=== PATIENT | female | born 1960 | race Caucasian/White ===

== ENCOUNTER 2019-02-26 13:35 | Observation (INO) | payer OTHER ==
[2019-02-26] MEDS ORDERED: NA CHLORIDE 0.9% 1,000 ML ONE (14:09)
[2019-02-26] MEDS ORDERED: ASPIRIN 81 MG CHEWABLE TABLET ONE (14:09)
[2019-02-26] MEDS ORDERED: FAMOTIDINE 20 MG/2 ML VIAL IV ONE (14:09)
[2019-02-26 14:22] LABS: Absolute Lymphocytes (CBC) 1.2 K/uL (0.7-4.9); Basophils % 0.7 % (0-1.3); Hematocrit 42.3 % (36.0-45.0); Lymphocytes % 26.9 % (15.3-44.8); MPV 8.7 fL (7.6-11.3); RBC Red Blood Cell Count 4.31 M/uL (3.86-4.86)
--- NOTE | 2019-02-26 14:23 | RAD REPORT ---
EXAM DESCRIPTION: RAD - Chest Single View - 02/26/2019 2:15 pm CLINICAL HISTORY: CHEST PAIN Chest pain. COMPARISON: CHEST SINGLE VIEW dated 03/04/2011; CHEST PA AND LAT 2 VIEW dated 03/20/2003 FINDINGS: Portable technique limits examination quality. The lungs are grossly clear. The heart is normal in size. No displaced fractures. IMPRESSION: No acute intrathoracic process suspected.
[2019-02-26 14:24] LABS: Protime INR 0.94
[2019-02-26 14:42] LABS: ALT/SGPT 23 U/L (12-78); AST/SGOT 17 U/L (15-37); Alkaline Phosphatase 62 U/L (45-117); BUN Blood Urea Nitrogen 11 mg/dL (7-18); Bicarbonate 31 mmol/L (21-32); Bilirubin Direct 0.1 mg/dL (0-0.2); Bilirubin Total 0.5 mg/dL (0.2-1.0); Glucose Level 79 mg/dL (74-106); Lipase 85 U/L (73-393); Magnesium 2.1 mg/dL (1.8-2.4); NT PRO-BNP 25 pg/mL (<125); Protein, Total 7.3 g/dL (6.4-8.2); Sodium Level 140 mmol/L (136-145); Troponin (Emerg Dept Use Only) < 0.02 ng/mL (0.0-0.045)
--- NOTE | 2019-02-26 15:41 | EKG ---
Test Date: 2019-02-26 Test Time: 13:43:58 Service Specialist: KELLE MEASUREMENT RESULTS: Intervals: Rate: 85 ID: [id number] QRSD: 86 QT: 366 QTc: 435 [place]: P: 69 ID: [id number] QRS: 109 T: 57 INTERPRETIVE STATEMENTS: Sinus rhythm with premature atrial complexes Rightward axis Borderline ECG Compared to ECG 03/05/2011 03:09:14 Atrial premature complex(es) now present Electronically Signed On 02-26-19 15:40:50 CDT by Bautista Noriega
--- NOTE | 2019-02-26 16:31 | EDPHYS ---
Physician Documentation [facility] Name: Meena Bryant Age: 58 yrs Sex: Female : 1960 Arrival Date: 02/26/2019 Time: 13:38 Bed 16 Private MD: Jt Avila B ED Physician [place] HPI: 02/26 16:25 This 58 yrs old Female presents to ER via Ambulatory with complaints of Chest zac Pain. 16:25 The patient or guardian reports chest pain that is located primarily in the substernal zac area, anterior chest wall, bilaterally. Onset: 3 day(s) ago. The pain radiates to back. Associated signs and symptoms: The patient has no apparent associated signs or symptoms. The chest pain is described as burning. Modifying factors: The symptoms are alleviated by nothing. Severity of pain: At its worst the pain was mild. Historical: - Allergies: 13:47 Tetanus Vaccines \T\ Toxoid; tw2 - Home Meds: 13:47 Fetzima oral oral [Active]; quintapin [Active]; estrodol and progesterone [Active]; tw2 Vitamin C 1,000 mg Oral tab [Active]; Vitamin B-12 50 mcg Oral tab [Active]; Vitamin D3 1,000 unit oral chew [Active]; - PMHx: 13:47 Depression; tw2 - PSHx: 13:47 Cholecystectomy; uterine ablation; tw2 - Immunization history:: Adult Immunizations. - Social history:: Smoking status: Smoking status: Patient uses tobacco products, 8 cigarettes a day, but i quit 10 days ago. - Ebola Screening: : Patient denies travel to an Ebola-affected area in the 21 days before illness onset. - Family history:: not pertinent. ROS: 16:25 Constitutional: Negative for fever, chills, and weight loss, Eyes: Negative for injury, zac pain, redness, and discharge, ENT: Negative for injury, pain, and discharge, Neck: Negative for injury, pain, and swelling, Respiratory: Negative for shortness of breath, cough, wheezing, and pleuritic chest pain, Back: Negative for injury and pain, : Negative for injury, bleeding, discharge, and swelling, MS/Extremity: Negative for injury and deformity, Skin: Negative for injury, rash, and discoloration, Neuro: Negative for headache, weakness, numbness, tingling, and seizure, Psych: Negative for depression, anxiety, suicide ideation, homicidal ideation, and hallucinations, Allergy/Immunology: Negative for hives, rash, and allergies, Endocrine: Negative for neck swelling, polydipsia, polyuria, polyphagia, and marked weight changes, Hematologic/Lymphatic: Negative for swollen nodes, abnormal bleeding, and unusual bruising. 16:25 Cardiovascular: Positive for chest pain. 16:25 Abdomen/GI: Positive for abdominal pain, of the epigastric area. Exam: 16:25 Constitutional: This is a well developed, well nourished patient who is awake, alert, zac and in no acute distress. Head/Face: Normocephalic, atraumatic. Eyes: Pupils equal round and reactive to light, extra-ocular motions intact. Lids and lashes normal. Conjunctiva and sclera are non-icteric and not injected. Cornea within normal limits. Periorbital areas with no swelling, redness, or edema. ENT: Nares patent. No nasal discharge, no septal abnormalities noted. Tympanic membranes are normal and external auditory canals are clear. Oropharynx with no redness, swelling, or masses, exudates, or evidence of obstruction, uvula midline. Mucous membranes moist. Neck: Trachea midline, no thyromegaly or masses palpated, and no cervical lymphadenopathy. Supple, full range of motion without nuchal rigidity, or vertebral point tenderness. No Meningismus. Chest/axilla: Normal chest wall appearance and motion. Nontender with no deformity. No lesions are appreciated. Respiratory: Lungs have equal breath sounds bilaterally, clear to auscultation and percussion. No rales, rhonchi or wheezes noted. No increased work of breathing, no retractions or nasal flaring. Back: No spinal tenderness. No costovertebral tenderness. Full range of motion. Skin: Warm, dry with normal turgor. Normal color with no rashes, no lesions, and no evidence of cellulitis. MS/ Extremity: Pulses equal, no cyanosis. Neurovascular intact. Full, normal range of motion. Neuro: Awake and alert, GCS 15, oriented to person, place, time, and situation. Cranial nerves II-XII grossly intact. Motor strength 5/5 in all extremities. Sensory grossly intact. Cerebellar exam normal. Normal gait. Psych: Awake, alert, with orientation to person, place and time. Behavior, mood, and affect are within normal limits. 16:25 Cardiovascular: Rate: normal, Rhythm: regular, Pulses: no pulse deficits are appreciated, Heart sounds: normal, normal S1and S2, no S3 or S4, no murmur, no rub, no gallop, Edema: is not appreciated, JVD: is not appreciated. Vital Signs: 13:43 BP 162 / 102; Pulse 84; Resp 17; Temp 97.9(TE); Pulse Ox 99% on R/A; Weight 66.68 kg tw2 (R); Height 5 ft. 7 in. (170.18 cm); Pain 7/10; 15:16 BP 125 / 78; Pulse 81; Resp 16; Pulse Ox 99% on R/A; ph 16:22 BP 140 / 79; Pulse 83; Resp 18; Pulse Ox 99% on R/A; ph 17:36 BP 127 / 81; Pulse 81; Resp 18; Temp 97.8; Pulse Ox 99% on R/A; ph 18:15 BP 124 / 78; Pulse 76; Resp 18; Temp 97.5; Pulse Ox 100% on R/A; ph 13:43 Body Mass Index 23.02 (66.68 kg, 170.18 cm) tw2 MDM: 14:14 Patient medically screened. [facility] 16:29 Data reviewed: vital signs, nurses notes, lab test result(s), EKG, radiologic studies, [facility] CT scan, plain films. 02/26 13:51 Order name: Basic Metabolic Panel; Complete Time: 16:22 [facility] 02/26 13:51 Order name: CBC with Diff; Complete Time: 16:22 [facility] 02/26 13:51 Order name: LFT's; Complete Time: 16:22 [facility] 02/26 13:51 Order name: Magnesium; Complete Time: 16:22 [facility] 02/26 13:51 Order name: NT PRO-BNP; Complete Time: 16:22 [facility] 02/26 13:51 Order name: PT-INR; Complete Time: 16:22 [facility] 02/26 13:51 Order name: Troponin (emerg Dept Use Only); Complete Time: 16:22 [facility] 02/26 13:51 Order name: XRAY Chest (1 view); Complete Time: 16:22 [facility] 02/26 13:51 Order name: Lipase; Complete Time: 16:22 [facility] 02/26 16:24 Order name: CT Aorta for Dissection; Complete Time: 17:03 [facility] 02/26 13:51 Order name: EKG; Complete Time: 13:52 [facility] 02/26 13:51 Order name: Cardiac monitoring; Complete Time: 14:21 [facility] 02/26 13:51 Order name: EKG - Nurse/Tech; Complete Time: 14:21 [facility] 02/26 13:51 Order name: IV Saline Lock; Complete Time: 14:21 [facility] 02/26 13:51 Order name: Labs collected and sent; Complete Time: 14:21 [facility] 02/26 13:51 Order name: O2 Per Protocol; Complete Time: 14:21 [facility] 02/26 13:51 Order name: O2 Sat Monitoring; Complete Time: 14:21 [facility] Administered Medications: 14:10 Drug: Aspirin 162 mg Route: PO; ca1 15:00 Follow up: Response: No adverse reaction ph 14:10 Drug: NS 0.9% 1000 ml Route: IV; Rate: 125 ml/hr; Site: left antecubital; ca1 18:00 Follow up: Response: No adverse reaction; IV Status: Infusion continued upon admission ph 14:15 Drug: Pepcid 20 mg Route: IVP; Site: left antecubital; ca1 15:00 Follow up: Response: No adverse reaction ph 17:10 Drug: Lopressor 25 mg Route: PO; ph 18:00 Follow up: Response: No adverse reaction ph 17:15 Drug: GI Cocktail without - (Maalox Suspension 30 ml, Lidocaine Liquid 2 % 15 ph ml) Route: PO; 17:45 Follow up: Response: No adverse reaction; Pain is decreased ph 17:15 Drug: Lovenox 1 mg/kg Route: Sub-Q; Site: right lower abdomen; ph 18:00 Follow up: Response: No adverse reaction ph 17:18 Drug: Zofran 4 mg Route: IVP; Site: left antecubital; ph 18:00 Follow up: Response: No adverse reaction ph 17:20 Drug: morphine 2 mg Route: IVP; Site: left antecubital; ph 18:00 Follow up: Response: No adverse reaction; Pain is decreased; RASS: Alert and Calm (0) ph Disposition: 02/26/19 16:30 Hospitalization ordered by Prezas, Talat for Observation. Preliminary diagnosis are Chest pain, unspecified, Functional dyspepsia. - Bed requested for Telemetry/MedSurg (observation). - Status is Observation. ph - Condition is Stable. - Problem is new. - Symptoms have improved. UTI on Admission? No Signatures: Dispatcher [employer] EDMS Jaqueline Romero Glen Mcrae MD MD cha Hall, Patricia, RN RN ph Litzy Coughlin, RN RN tw2 Za De Luna RN RN ca1 Corrections: (The following items were deleted from the chart) 17:35 16:30 Hospitalization Ordered by Talat Ng DO for Observation. Preliminary bd diagnosis is Chest pain, unspecified; Functional dyspepsia. Bed requested for Telemetry/MedSurg (observation). Status is Observation. Condition is Stable. Problem is new. Symptoms have improved. UTI on Admission? No. [facility] 18:30 17:35 02/26/2019 16:30 Hospitalization Ordered by Talat Ng DO for Observation. ph Preliminary diagnosis is Chest pain, unspecified; Functional dyspepsia. Bed requested for Telemetry/MedSurg (observation). Status is Observation. Condition is Stable. Problem is new. Symptoms have improved. UTI on Admission? No. bd
--- NOTE | 2019-02-26 16:31 | ER ---
Nurse's Notes [facility] Name: Meena Bryant Age: 58 yrs Sex: Female : 1960 Arrival Date: 02/26/2019 Time: 13:38 Bed 16 Private MD: Jt Avila B Diagnosis: Chest pain, unspecified;Functional dyspepsia Presentation: 02/26 13:41 Presenting complaint: Patient states: Tuesday morning i started with like a stomach tw2 virus and also an achy feeling in my chest, it radiates up, i have had pancreatitis before maybe my esophagus was inflamed, when i get indigestion i get pain in my back but the medicine is not helping, chest pain is keeping me awake. Transition of care: patient was not received from another setting of care. Onset of symptoms was February 26, 2019. Risk Assessment: Do you want to hurt yourself or someone else? Patient reports no desire to harm self or others. Initial Sepsis Screen: Does the patient meet any 2 criteria? No. Patient's initial sepsis screen is negative. Does the patient have a suspected source of infection? No. Patient's initial sepsis screen is negative. Care prior to arrival: None. 13:41 Method Of Arrival: Ambulatory tw2 13:41 Acuity: CHARLIE 3 tw2 Triage Assessment: 13:44 General: Appears in no apparent distress. slender, well groomed, Behavior is calm, tw2 cooperative, appropriate for age. Pain: Complains of pain in chest. Cardiovascular: Reports chest pain. Historical: - Allergies: 13:47 Tetanus Vaccines \T\ Toxoid; tw2 - Home Meds: 13:47 Fetzima oral oral [Active]; quintapin [Active]; estrodol and progesterone [Active]; tw2 Vitamin C 1,000 mg Oral tab [Active]; Vitamin B-12 50 mcg Oral tab [Active]; Vitamin D3 1,000 unit oral chew [Active]; - PMHx: 13:47 Depression; tw2 - PSHx: 13:47 Cholecystectomy; uterine ablation; tw2 - Immunization history:: Adult Immunizations. - Social history:: Smoking status: Smoking status: Patient uses tobacco products, 8 cigarettes a day, but i quit 10 days ago. - Ebola Screening: : Patient denies travel to an Ebola-affected area in the 21 days before illness onset. - Family history:: not pertinent. Screenin:26 Abuse screen: Denies threats or abuse. Nutritional screening: No deficits noted. tw2 Tuberculosis screening: No symptoms or risk factors identified. Fall Risk None identified. Assessment: 13:41 Pain: Pain radiates to back Pain began 2-3 days ago. tw2 14:00 General: Appears in no apparent distress. comfortable, well groomed, Behavior is calm, ph cooperative, appropriate for age, Denies fever. Pain: Complains of pain in epigastric area Pain radiates to back and chest. Neuro: Level of Consciousness is awake, alert, obeys commands, Oriented to person, place, time, situation. Cardiovascular: Reports chest pain, nausea, vomiting, Denies palpitations, shortness of breath, Rhythm is regular Chest pain is located in substernal area radiates back. Respiratory: Airway is patent Respiratory effort is even, unlabored. GI: Reports epigastric pain, nausea, vomiting. Derm: Skin is intact, Skin is pink, warm \T\ dry. 15:00 Reassessment: Patient appears in no apparent distress at this time. Patient and/or ph family updated on plan of care and expected duration. Pain level reassessed. Patient is alert, oriented x 3, equal unlabored respirations, skin warm/dry/pink. 16:21 Reassessment: Patient appears in no apparent distress at this time. Patient and/or ph family updated on plan of care and expected duration. Pain level reassessed. Patient is alert, oriented x 3, equal unlabored respirations, skin warm/dry/pink. 17:30 Reassessment: Patient appears in no apparent distress at this time. Patient and/or ph family updated on plan of care and expected duration. Pain level reassessed. Patient is alert, oriented x 3, equal unlabored respirations, skin warm/dry/pink. 18:15 Reassessment: Patient appears in no apparent distress at this time. Patient and/or ph family updated on plan of care and expected duration. Pain level reassessed. Patient is alert, oriented x 3, equal unlabored respirations, skin warm/dry/pink. Report called to Daniel CONDON. Vital Signs: 13:43 BP 162 / 102; Pulse 84; Resp 17; Temp 97.9(TE); Pulse Ox 99% on R/A; Weight 66.68 kg tw2 (R); Height 5 ft. 7 in. (170.18 cm); Pain 7/10; 15:16 BP 125 / 78; Pulse 81; Resp 16; Pulse Ox 99% on R/A; ph 16:22 BP 140 / 79; Pulse 83; Resp 18; Pulse Ox 99% on R/A; ph 17:36 BP 127 / 81; Pulse 81; Resp 18; Temp 97.8; Pulse Ox 99% on R/A; ph 18:15 BP 124 / 78; Pulse 76; Resp 18; Temp 97.5; Pulse Ox 100% on R/A; ph 13:43 Body Mass Index 23.02 (66.68 kg, 170.18 cm) tw2 ED Course: 13:38 Patient arrived in ED. mr 13:39 Jt Aivla MD is Private Physician. mr 13:43 Triage completed. tw2 13:43 Arm band placed on. EKG completed in triage. Results shown to MD. tw2 13:47 Placed in gown. Bed in low position. Call light in reach. Adult w/ patient. Cardiac tw2 monitor on. Pulse ox on. NIBP on. 13:50 [place] Verde MD is Attending Physician. zac 13:55 Arti Martins, TAURUS is Primary Nurse. ph 14:03 EKG done, by roving technician. reviewed by Anthony Cullen MD. sm3 14:15 XRAY Chest (1 view) In Process Unspecified. EDMS 14:26 Patient maintains SpO2 saturation greater than 95% on room air. tw2 15:30 Inserted saline lock: 20 gauge in left antecubital area, using aseptic technique. ph 16:29 Talat Ng DO is Hospitalizing Provider. zac 16:[address] nj 16:37 CT completed. Patient tolerated procedure well. Patient moved back from CT. nj 16:38 CT Aorta for Dissection In Process Unspecified. EDMS 18:20 No provider procedures requiring assistance completed. Patient admitted, IV remains in ph place. Administered Medications: 14:10 Drug: Aspirin 162 mg Route: PO; ca1 15:00 Follow up: Response: No adverse reaction ph 14:10 Drug: NS 0.9% 1000 ml Route: IV; Rate: 125 ml/hr; Site: left antecubital; ca1 18:00 Follow up: Response: No adverse reaction; IV Status: Infusion continued upon admission ph 14:15 Drug: Pepcid 20 mg Route: IVP; Site: left antecubital; ca1 15:00 Follow up: Response: No adverse reaction ph 17:10 Drug: Lopressor 25 mg Route: PO; ph 18:00 Follow up: Response: No adverse reaction ph 17:15 Drug: GI Cocktail without - (Maalox Suspension 30 ml, Lidocaine Liquid 2 % 15 ph ml) Route: PO; 17:45 Follow up: Response: No adverse reaction; Pain is decreased ph 17:15 Drug: Lovenox 1 mg/kg Route: Sub-Q; Site: right lower abdomen; ph 18:00 Follow up: Response: No adverse reaction ph 17:18 Drug: Zofran 4 mg Route: IVP; Site: left antecubital; ph 18:00 Follow up: Response: No adverse reaction ph 17:20 Drug: morphine 2 mg Route: IVP; Site: left antecubital; ph 18:00 Follow up: Response: No adverse reaction; Pain is decreased; RASS: Alert and Calm (0) ph Outcome: 16:30 Decision to Hospitalize by Provider. zac 18:30 Patient left the ED. ph 18:30 Admitted to Tele accompanied by tech, via wheelchair, with chart. ph 18:30 Condition: stable 18:30 Instructed on the need for admit. Signatures: Dispatcher [employer] Glen Mcmanus MD MD cha Rivera, Jennifer mr Martins, TAURUS Chi RN Litzy Coughlin RN RN 2 Esequiel Smith Shakira [facility] Za De Luna RN RN ca1
[2019-02-26] MEDS ORDERED: MORPHINE 2 MG/ML SYR ONE (16:53)
[2019-02-26] MEDS ORDERED: METOPROLOL TAR 25 MG TAB ONE (16:53)
[2019-02-26] MEDS ORDERED: MAGNE/ALUM HYDROXD 30 ML UCUP ONE (16:53)
[2019-02-26] MEDS ORDERED: ONDANSETRON 4 MG/2 ML VIAL ONE (16:53)
[2019-02-26] MEDS ORDERED: LIDOCAINE VISCOUS 2% SOLN 15 ML UDC ONE (16:54)
[2019-02-26] MEDS ORDERED: ENOXAPARIN 60 MG/0.6 ML SQ ONE (16:54)
--- NOTE | 2019-02-26 16:58 | RAD REPORT ---
EXAM DESCRIPTION: CT - Angio Aorta For Dissection - 02/26/2019 4:38 pm CLINICAL HISTORY: . Chest and abd pain COMPARISON: None TECHNIQUE: Computed tomography angiography of the chest, abdomen pelvis were obtained. 100 cc Isovue 370 was administered intravenously. Coronal and sagittal reconstruction were performed. MIP 3D reconstruction was performed All CT scans are performed using dose optimization technique as appropriate and may include automated exposure control or mA/KV adjustment according to patient size. FINDINGS: An aortic dissection is not seen. An aortic aneurysm is not displayed. The celiac, SMA and KINJAL are patent . A lung consolidation is not present. A pericardial effusion is not seen. A pleural effusion is not n oted. The liver,spleen, pancreas adrenals kidneys demonstrate no significant abnormality. The appendix is normal. There no evidence diverticulitis. IMPRESSION: Negative for an aortic dissection.
--- NOTE | 2019-02-26 17:15 | P.HP ---
Certification for Inpatient Patient admitted to: Observation With expected LOS: <2 Midnights Patient will require the following post-hospital care: None Practitioner: I am a practitioner with admitting privileges, knowledge of patient current condition, hospital course, and medical plan of care. Services: Services provided to patient in accordance with Admission requirements found in Title 42 Section 412.3 of the Code of Federal Regulations Patient History Date of Service: 02/26/19 Primary Care Provider: Dr. Jt Avila Reason for admission: Chest pain History of Present Illness: 58-year-old female with history of GERD, migraine headaches, depression and former tobacco use. Patient reported chest pain. Patient reports she woke up Tuesday with pain to the epigastric region. It was associated with some nausea and vomiting. Her condition did not improve. It was more of a dull like sensation. She took some Prilosec on Tuesday including the weekend without any relief. Today she had more pain but to the sternal region. It would radiate to the back. She did not have any nausea or vomiting. Nor shortness of breath. Because the pain persisted she came to the ER for further evaluation. In the ER she was evaluated. Blood pressure was slightly it elevated upon arrival. CBC, BMP unremarkable. Troponin unremarkable. EKG did not show any significant ST changes. CT dissection of the chest unremarkable. Patient was admitted for further evaluation. When I saw the patient in the ER, pain had improved. Patient is a former smoker. She recently quit. There is a family history of heart disease. Home medications list reviewed: Yes - Past Medical/Surgical History Diabetic: No -: Depression -: GERD -: Migraines -: Former tobacco use -: History of pancreatitis -: Cholecystectomy -: Uterine ablation Psychosocial/ Personal History: Patient is - Family History Father -: Heart disease Mother -: Hypertension Brother -: Liver disease (Cirrhosis) - Social History Smoking Status: Former smoker Alcohol use: Yes CD- Drugs: No Caffeine use: Yes Place of Residence: Home Review of Systems General: Unremarkable Eyes: Unremarkable ENT: Unremarkable Respiratory: Unremarkable Cardiovascular: Chest Pain, As per HPI Gastrointestinal: Nausea, Vomiting, As per HPI Genitourinary: Unremarkable Musculoskeletal: Unremarkable Integumentary: Unremarkable Neurological: Unremarkable Lymphatics: Unremarkable Physical Examination - Physical Exam General: Alert, In no apparent distress, Oriented x3, Cooperative HEENT: Atraumatic, Normocephalic, PERRLA, Mucous membr. moist/pink Neck: Supple Respiratory: Clear to auscultation bilaterally, Normal air movement Cardiovascular: Normal pulses, Regular rate/rhythm Gastrointestinal: Normal bowel sounds, Soft and benign, Non-distended, No tenderness, No masses, No rebound, No guarding Musculoskeletal: No tenderness, No warmth Integumentary: No tenderness/swelling, No erythema, No warmth, No cyanosis Neurological: Normal speech, Normal strength at 5/5 x4 extr, Normal tone, Normal affect - Studies Laboratory Data (last 24 hrs) 02/26/19 14:05: PT 11.1, INR 0.94 02/26/19 14:05: WBC 4.6, Hgb 14.5, Hct 42.3, Plt Count 186 02/26/19 14:05: Sodium 140, Potassium 4.0, BUN 11, Creatinine 0.70, Glucose 79, Magnesium 2.1, Total Bilirubin 0.5, AST 17, ALT 23, Alkaline Phosphatase 62, Lipase 85 Assessment and Plan - Plan Impression: Chest pain likely noncardiac GERD Depression Migraine headaches Former tobacco use Plan: Chest pain likely noncardiac: Patient will be admitted for further evaluation. Will monitor cardiac enzymes and telemetry. Will obtain fasting lipid panel in the morning. Cardiology will be consulted to further evaluate. Will keep the patient NPO after midnight in preparation for possible cardiac evaluation in the morning by Cardiology. Will start aspirin, Lipitor, Protonix. Will provide IV metoprolol if blood pressure remains elevated. I will turn the service over to Dr. Kearns tomorrow. I will go over the plan of care with her. Anticipate discharge tomorrow with clinical improvement and cardiac evaluation. GERD: Suspect GERD. Will start Protonix. If cardiac workup unremarkable will recommended GI evaluation as an outpatient. Depression: Patient may continue with her home medication which includes: Fetzima and Seroquel. Migraine headaches: Patient may require medication as needed. Patient may use her home medication. Former tobacco use: Patient recently quit tobacco. She plans to remain committed to no longer smoke. Discharge Plan: Home Plan to discharge in: 24 Hours - Advance Directives Does patient have a Living Will: No Does patient have a Durable POA for Healthcare: No - Code Status/Comfort Care Code Status Assessed: Yes (Patient is full code) Time Spent Managing Pts Care (In Minutes): 55
[2019-02-26 18:44] VITALS: BMI 23.0
[2019-02-26] MEDS ORDERED: METOPROLOL TARTRATE 5 MG/5 ML INJ IV PRN (18:46)
[2019-02-26] MEDS ORDERED: ONDANSETRON 4 MG/2 ML VIAL IV PRN (18:46)
[2019-02-26] MEDS ORDERED: ACETAMINOPHEN 500 MG TAB PO PRN (18:46)
[2019-02-26] MEDS ORDERED: QUETIAPINE 25 MG TAB PO SCH (21:00)
[2019-02-26] MEDS ORDERED: ATORVASTATIN 40 MG TAB PO SCH (21:00)
[2019-02-26 21:09] LABS: CKMB Creatine Kinase MB < 1.0 ng/mL (0.3-3.6); Creatine Phosphokinase 28 U/L (26-192); Troponin I < 0.02 ng/mL (0.0-0.045)
[2019-02-26] MEDS ORDERED: ESTRADIOL 0.1 MG TOP SCH (21:45)
[2019-02-27 00:31] LABS: Urine Appearance CLEAR; Urine Bilirubin NEGATIVE (NEG); Urine Blood NEGATIVE (NEG); Urine Color YELLOW; Urine Glucose NEGATIVE (NEG); Urine Microscopic Reflex NO UMIC; Urine Protein NEGATIVE (NEG); Urine Specific Gravity >=1.030 (1.005-1.030)
[2019-02-27] MEDS: NITROGLYCERIN 0.4 MG/TAB SL PRN ×3 (00:40→00:55)
[2019-02-27] MEDS ORDERED: MORPHINE 2 MG/ML SYR IV ONE (01:10)
[2019-02-27 04:20] VITALS: O2SAT 96
[2019-02-27 05:23] LABS: CKMB Creatine Kinase MB < 1.0 ng/mL (0.3-3.6); Creatine Phosphokinase 24 U/L (26-192); HDL Cholesterol 59 mg/dL (40-60); LDL Cholesterol, Calculated 131 (<130); Troponin I < 0.02 ng/mL (0.0-0.045)
[2019-02-27] MEDS ORDERED: PANTOPRAZOLE 40MG TABLET PO SCH (06:30)
[2019-02-27] MEDS ORDERED: ENOXAPARIN 40 MG/0.4 ML SQ SCH (09:00)
[2019-02-27] MEDS ORDERED: VITAMIN D 1000 UNIT TAB PO SCH (09:00)
[2019-02-27] MEDS ORDERED: ASPIRIN EC 81 MG TAB PO SCH (09:00)
--- NOTE | 2019-02-27 10:17 | EKG ---
Test Date: 2019-02-27 Test Time: 01:25:15 Brand Attendant: OSCAR MEASUREMENT RESULTS: Intervals: Rate: 68 VA: 152 QRSD: 88 QT: 410 QTc: 435 [place]: P: 60 VA: 152 QRS: 100 T: 50 INTERPRETIVE STATEMENTS: Normal sinus rhythm Rightward axis Borderline ECG Compared to ECG 02/26/2019 13:43:58 Atrial premature complex(es) no longer present Electronically Signed On 02-27-19 10:15:57 CDT by Tk Fischer
--- NOTE | 2019-02-27 10:29 | ECHO ---
HEIGHT: 5 ft 7 in WEIGHT: 147 lb 0 oz DATE OF STUDY: 05/30/[address]: Talat Ng DO 2-DIMENSIONAL: YES M.MODE: YES DOPPLER: YES COLOR FLOW: YES TDS: NO PORTABLE: YES DEFINITY: NO BUBBLE STUDY: NO DIAGNOSIS: CHEST PAIN CARDIAC HISTORY: CATHERIZATION: NO SURGERY: NO PROSTHETIC VALVE: NO PACEMAKER: NO MEASUREMENTS (cm) DIASTOLIC (NORMALS) SYSTOLIC (NORMALS) IVSd 1.0 (0.6-1.2) LA Diam 2.9 (1.9-4.0) LVEF 67% LVIDd 4.6 (3.5-5.7) LVIDs 2.9 (2.0-3.5) %FS 37% LVPWd 1.2 (0.6-1.2) Ao Diam 2.8 (2.0-3.7) 2 DIMENSIONAL ASSESSMENT: RIGHT ATRIUM: NORMAL LEFT ATRIUM: NORMAL RIGHT VENTRICLE: NORMAL LEFT VENTRICLE: NORMAL TRICUSPID VALVE: NORMAL MITRAL VALVE: MITRAL ANNULAR CALCIFICATION PULMONIC VALVE: NORMAL AORTIC VALVE: NORMAL PERICARDIAL EFFUSION: NONE AORTIC ROOT: NORMAL LEFT VENTRICULAR WALL MOTION: NORMAL. DOPPLER/COLOR FLOW: TRACE TRICUSPID REGURGITATION. MILD AORTIC REGURGITATION. COMMENTS: NORMAL LEFT VENTRICULAR SIZE AND FUNCTION. MITRAL ANNULAR CALCIFICATION. MILD AORTIC REGURGITATION. TRACE OF TRICUSPID REGURGITATION NORMAL RIGHT VENTRICULAR SYSTOLIC PRESSURE. NO WALL MOTION ABNORMALITY. NO EFFUSION. TECHNOLOGIST: NANCI SPANN
[2019-02-27 13:39] VITALS: BP 131/75; TEMP 98.3
--- NOTE | 2019-02-27 16:04 | P.SSS ---
Patient History Date of Service: 02/27/19 Primary Care Provider: Dr. Jt Avila Reason for admission: Chest pain History of Present Illness: 58-year-old female with history of GERD, migraine headaches, depression and former tobacco use. Patient reported chest pain. Patient reports she woke up Tuesday with pain to the epigastric region. It was associated with some nausea and vomiting. Her condition did not improve. It was more of a dull like sensation. She took some Prilosec on Tuesday including the weekend without any relief. Today she had more pain but to the sternal region. It would radiate to the back. She did not have any nausea or vomiting. Nor shortness of breath. Because the pain persisted she came to the ER for further evaluation. In the ER she was evaluated. Blood pressure was slightly it elevated upon arrival. CBC, BMP unremarkable. Troponin unremarkable. EKG did not show any significant ST changes. CT dissection of the chest unremarkable. Patient was admitted for further evaluation. When I saw the patient in the ER, pain had improved. Patient is a former smoker. She recently quit. There is a family history of heart disease. Allergies Tetanus Vaccines and Toxoid Allergy (Verified 02/26/19 18:46) Anaphylaxis Home Medications: Ascorbic Acid [Vitamin C] 500 mg PO BEDTIME 02/26/19 Cholecalciferol (Vitamin D3) [Vitamin D3] 2,000 unit PO BEDTIME 02/26/19 Cyanocobalamin [Vitamin B-12*] 1,000 mcg PO BEDTIME 02/26/19 Estradiol 0.1 mg TOP SEECOM 02/26/19 Levomilnacipran HCl [Fetzima] 80 mg PO BEDTIME 02/26/19 Progesterone, Micronized [Progesterone] 100 mg PO BEDTIME 02/26/19 Quetiapine [Seroquel*] 25 mg PO BEDTIME 02/26/19 - Past Medical/Surgical History Has patient received pneumonia vaccine in the past: No Diabetic: No -: Depression -: GERD -: Migraines -: Former tobacco use -: History of pancreatitis -: Cholecystectomy -: Uterine ablation Psychosocial/ Personal History: Patient is - Family History Father -: Heart disease Mother -: Hypertension Brother -: Liver disease - Social History Smoking Status: Former smoker Alcohol use: Yes CD- Drugs: No Caffeine use: Yes Place of Residence: Home Review of Systems 10-point ROS is otherwise unremarkable Physical Examination - Vital Signs Temperature: 98.3 F Blood Pressure: 131/75 Pulse: 78 Respirations: 16 Pulse Ox (%): 99 - Physical Exam General: Alert, In no apparent distress HEENT: Atraumatic, PERRLA, Mucous membr. moist/pink, EOMI, Sclerae nonicteric Neck: Supple, 2+ carotid pulse no bruit, No LAD, Without JVD or thyroid abnormality Respiratory: Clear to auscultation bilaterally, Normal air movement Cardiovascular: Regular rate/rhythm, Normal S1 S2 Gastrointestinal: Normal bowel sounds, No tenderness Musculoskeletal: No tenderness Integumentary: No rashes Neurological: Normal gait, Normal speech, Normal strength at 5/5 x4 extr, Normal tone, Normal affect Lymphatics: No axilla or inguinal lymphadenopathy Treatment Summary: Discharge diagnosis Chest pain Hospital Course Over the course of the hospital stay patient remained stable. Patient was admitted to the hospital for chest pain ACS rule out. Troponin x2 was negative. Echocardiogram was done which was negative for any acute abnormality. Cardiology was consulted who recommended patient to be discharged home under stable condition and have outpatient stress test done. Patient remained chest pain free while here in the hospital. When she was doing better she was discharged home under stable condition. - Disposition Disposition: ROUTINE DISCHARGE Condition: GOOD Patient Discharge Instructions: Please f.u with Cardiology to have your stress test scheduled. Diet: Regular Activity: Ad jennifer
--- NOTE | 2019-02-27 18:22 | CON ---
Date of Consultation: 02/27/[address] Ng on 02/26/2019. I saw the patient on 02/27/2019. Reason For Consultation: Chest pain. History Of Present Illness: Ms. Bryant is a 58-year-old white woman. She has a history of depressi on and family history of heart disease, history of pancreatitis. Has seen Dr. Lyon in the past for p ancreatitis and other gastrointestinal issues. She has been having pain since Tuesday, that is 4 days now with constant chest pain, midepigastric, radiating to the back. No nausea, vomiting, diaphoresi s, PND, orthopnea, pedal edema, palpitations, or syncope. Had a normal chest x-ray, normal EKG excep t for PAC. Normal CT angiogram of the chest. Normal troponin. Normal BNP. Past Medical History: As stated above. Allergies: SHE IS ALLERGIC TO TETANUS TOXOID. Review of Systems: Negative. Social History: Negative. Family History: Positive for heart disease. Medications: Medications at home does not include any cardiac medicine. Physical Examination: Vital signs: Stable. Afebrile. Sinus rhythm. HEENT: Negative. Neck: Supple. No bruit. Chest: Clear to auscultation and percussion. Cardiac: Regular rhythm and rate. No murmurs, gallops, or rubs. Abdomen: Benign. Extremities: No clubbing, cyanosis, or edema. Diagnostic Data: An echocardiogram that is normal. Impression And Plan: Atypical chest pain, most likely gastroesophageal reflux disease in nature. I doubt that she has pancreatitis. She has normal amylase. Her echo is normal. EKG is normal. CTA a nd chest x-ray are negative. Troponin is negative. I am comfortable with her going home on proton p ump inhibitors. I discussed the case with Dr. Kearns. I will arrange for her to have an outpatient s tress test. OLGA/MICHAEL Voice ID: [id number] Report ID: [id number]
[2019-02-27] MEDS ORDERED: CYANOCOBALAMIN 1,000 MCG TAB PO SCH (21:00)
[2019-02-27] MEDS ORDERED: QUETIAPINE 25 MG TAB PO SCH (21:00)
[2019-02-27] MEDS ORDERED: PROGESTERONE,MICRONIZED 100 MG CAP PO SCH (21:00)
[2019-02-27] MEDS ORDERED: LEVOMILNACIPRAN HCL 80 MG PO SCH (21:00)
[2019-02-27] MEDS ORDERED: ASCORBIC ACID 500 MG TABLET PO SCH (21:00)
== END 2019-02-27 14:05 | disposition home or self-care (01) ==
LOC: ER 13:35 → ERHOLD 16:57 → 4TH 18:16
PROVIDERS: ADMIT Family Medicine; ATTEND Family Medicine
DX: R07.89 Other chest pain (principal); F32.9 Major depressive disorder, single episode, unspecified; K21.9 Gastro-esophageal reflux disease without esophagitis; G43.909 Migraine, unspecified, not intractable, without status migrainosus; Z87.891 Personal history of nicotine dependence
CPT/HCPCS: 96361; 93005 ×2; 93306; 85025; 80048; 36415; 83735; 82550 ×2; 85610; 80061; 80076; 81003; 84484 ×4; 82553 ×2; 83690; 83880; 71275; 74175; 71045; 96375; 96372; 96374; 99285; Q9967; J1650 ×2; J2270 ×2; J7030; J2405; G0378 ×3